=== PATIENT | female | born 1970 | race Caucasian/White ===

== ENCOUNTER → 2017-06-23 | Outpatient (CLI) | payer BC ==
[~2017-06-23] MED LIST: ALB0.5 INH; AUG875 PO; AZIT1PAC21 PO; CEP500 PO; CIPR-368 PO; DOC100 PO; HYD5L PO; HYDEL PO; HYDR473S4 PO; LEV500 PO; LEVO-85 PO; LOR5 PO; METR-1 PO; OND4 PO; ONDA4TAB PO; PAN40 PO; PER PO; PRED20TA6 PO; PRO25 PO; PROM25S PR; SUC1 PO; ZPACK
--- NOTE | 2017-06-23 15:29 | RADIOLOGY IMAGING REPORT ---
FACILITY: [facility] PATIENT NAME: AVTAR MELARA : [id number] MR: [id number] V: [id number] EXAM DATE: [id number] ORDERING PHYSICIAN: VANCE BLACKMON TECHNOLOGIST: Danii Ny PROCEDURE:BILATERAL DIAGNOSTIC DIGITAL MAMMOGRAM WITH CAD ASSISTED INTERPRETATION & 3D TOMOSYNTHESIS COMPARISON:None. INDICATIONS:Small palpable red lump 4 o'clock position of the Right breast. FINDINGS: A small amount of fibroglandular tissue is seen throughout the breasts. There is asymmetric deposition of the fibroglandular tissue which appears denser in the upper outer quadrant of the Left breast. Spot compression view demonstrated this area to be at least partially compressible. There is no demonstration of malignant appearing mass, malignant appearing calcifications or other secondary sign of malignancy in either breast. Today's Right breast Ultrasound demonstrated a small hypoechoic nodule just beneath the skin which may represent a sebaceous cyst or infected skin nodule. Clinical follow-up recommended for patient's palpable findings. DIAGNOSTIC CATEGORY 2--BENIGN FINDING. RECOMMENDATIONS: ROUTINE MAMMOGRAM AND CLINICAL EVALUATION. CLINICAL EVALUATION. IMPRESSION: BIRADS 2: Benign finding Clinical follow-up recommended as described above. Dictated by: Leslie Gonzalez M.D. on 06/23/2017 at 12:17 Transcribed by: RAJESH on 06/23/2017 at 14:01 Approved by: Leslie Gonzalez M.D. on 06/23/2017 at 15:27 [facility]
--- NOTE | 2017-06-23 15:29 | RADIOLOGY IMAGING REPORT ---
FACILITY: [facility] [place] PATIENT NAME: AVTAR MELARA : [id number] MR: [id number] V: [id number] EXAM DATE: ORDERING PHYSICIAN: VANCE BLACKMON TECHNOLOGIST: Ismael Deal PROCEDURE:US RIGHT BREAST COMPARISON:None. INDICATIONS:RIGHT BREAST REDNESS, TENDERNESS AND SMALL LUMP IN THE 4 O'CLOCK POSITION. FINDINGS: In location of the patient's palpable findings there is a small ovoid hypoechoic nodule measuring 8.4 x 4.3 x 7.5mm just beneath the skin. There may be a small tiny tract extending towards the skin surface. This likely represents a small sebaceous cyst or infected skin nodule. Clinical follow-up recommended. DIAGNOSTIC CATEGORY 2--BENIGN FINDING. RECOMMENDATIONS: CLINICAL EVALUATION. IMPRESSION: BIRADS 2: Benign finding Small ovoid hypoechoic nodule just beneath the skin likely represents a small sebaceous cyst or infected skin nodule clinical follow-up recommended. Dictated by: Leslie Gonzalez M.D. on 06/23/2017 at 12:15 Transcribed by: RAJESH on 06/23/2017 at 14:08 Approved by: Leslie Gonzalez M.D. on 06/23/2017 at 15:28 [facility]
== END ==
LOC: US 07:12
PROVIDERS: ATTEND Physician Assistant Medical
DX: Z12.31 Encounter for screening mammogram for malignant neoplasm of breast (principal); N63.14 Unspecified lump in the right breast, lower inner quadrant
CPT/HCPCS: 77062; 77066

== ENCOUNTER → 2017-11-24 | Outpatient (CLI) | payer BC ==
[~2017-11-24] MED LIST changes: +GADOBENATE 529MG/1ML 15ML VIAL IVP ONE
--- NOTE | 2017-11-24 12:47 | RADIOLOGY IMAGING REPORT ---
FACILITY: [facility] [place] PATIENT NAME: Felipa Hunter : 1970 MR: [id number] V: [id number] EXAM DATE: ORDERING PHYSICIAN: ANDREA MARIO TECHNOLOGIST: Location: [facility] [place] Patient: Felipa Hunter : 1970 Visit/Account:[id number] Date of Sevice: 11/24/2017 Exam type: ORBITS FOREIGN BODY 1 VIEW History: Pre-MRI screening Comparison: February 18, 2009. Findings: No radiopaque metallic foreign bodies project over the orbits IMPRESSION: 1. No radiopaque metallic foreign bodies project over the orbits Report Dictated By: Leslie Gonzalez MD at 11/24/2017 12:36 PM Report E-Signed By: Leslie Gonzalez MD at 11/24/2017 12:43 PM WSN:[id number]
--- NOTE | 2017-11-24 14:16 | RADIOLOGY IMAGING REPORT ---
FACILITY: [facility] [place] PATIENT NAME: Felipa Hunter : 1970 MR: [id number] V: [id number] EXAM DATE: ORDERING PHYSICIAN: ANDREA MARIO TECHNOLOGIST: Location: [facility] Patient: Felipa Hunter : 1970 Visit/Account:[id number] Date of Sevice: 11/24/2017 BRAIN W W/O CONTRAST Comparisons: None. Additional pertinent history: Migraine with aura TECHNIQUE: Multiplanar, multisequence brain MRI was performed with and without gadolinium contrast. CONTRAST: 15 ml of MultiHance. FINDINGS: Sagittal midline structures and craniocervical junction: Negative. Midline shift: None. Ventricles: Negative. Brain parenchyma: Diffusion weighted imaging: Negative. Gradient sequence: Negative. T2 weighted FLAIR images: Negative. Extra-axial spaces: Negative. Dural venous sinuses and major arterial flow voids: Negative. Intracranial enhancement: Negative.. Mastoid air cells and paranasal sinuses: Negative. Surrounding soft tissues and orbits: Negative. Impression: Normal brain MRI with and without contrast. Report Dictated By: Justino Cage MD at 11/24/2017 2:03 PM Report E-Signed By: Justino Cage MD at 11/24/2017 2:11 PM WSN:[id number]
== END ==
LOC: MRI 11:05
PROVIDERS: ATTEND Family Medicine
DX: G43.109 Migraine with aura, not intractable, without status migrainosus (principal)
CPT/HCPCS: 70030; 70553; A9577

== ENCOUNTER 2018-06-04 17:05 | Emergency (ER) | payer SELFPAY ==
[~2018-06-04 17:05] MED LIST changes: -GADOBENATE 529MG/1ML 15ML VIAL IVP ONE
--- NOTE | 2018-06-04 17:12 | ER Report ---
History and Physical Time Seen By MD: 17:12 HPI/ROS CHIEF COMPLAINT: Abdominal pain, dysuria HISTORY OF PRESENT ILLNESS: 47-year-old female patient presents to the emergency room with complaint of abdominal pain, dysuria. Patient states pain does radiate around to the back. Patient states this been going on for the past 8 days. She denies having any fevers, chills, nausea, vomiting or diarrhea. Patient states she initially thought she was constipated and took magnesium citrate. I did cause her to vomit. States she's been able to eat and drink since without any difficulties. Patient states that she was sexually active for the first time in a couple of years prior to this starting. She states this was with any partner, she states there was no use of condom. The patient did agree to have chlamydia and gonorrhea testing done. REVIEW OF SYSTEMS: Respiratory: No cough, no dyspnea. Cardiovascular: No chest pain, no palpitations. Gastrointestinal: As noted above Musculoskeletal: As noted above Allergies: Coded Allergies: No Known Drug Allergies (Verified , 02/17/15) Home Meds Active Scripts Phenazopyridine Hcl (PHENAZOPYRIDINE HCL) 100 Mg Tablet, 100 MG PO TID, #15 TAB Prov:ASHLEY GRIFFIN 06/04/18 Sulfamethoxazole/Trimet 800-160 Mg Tab (BACTRIM DS TABLET) 1 Each Tablet, 1 TAB PO Q12H, #14 TAB Prov:ASHLEY GRIFFIN 06/04/18 Reported Medications Pantoprazole Sodium (PANTOPRAZOLE SODIUM) 40 Mg Tablet.dr, 40 MG PO QDAY, TAB.SR 06/04/18 Discontinued Scripts Prednisone (PREDNISONE) 20 Mg Tablet, 40 MG PO QDAY, #20 TAB Prov:DOROTHY OROZCO MD 02/17/15 Levofloxacin 500 Mg Tab (LEVAQUIN 500 MG TAB) 500 Mg Tablet, 500 MG PO DAILY, #7 TAB Prov:DOROTYH OROZCO MD 02/17/15 Past Medical/Surgical History Patient has a past medical history of ulcers, reflux, hiatal hernia, fractured clavicle, substance abuse. Patient has surgical history of hemorrhoidectomy, appendectomy, tubal ligation. Patient has a family medical history of CAD. Reviewed Nurses Notes: Yes Hx Smoking: Yes (1/2 PPD) Smoking Status: Current: Every Day Smoker Hx Substance Use Disorder: Yes Hx Alcohol Use: No Constitutional Vital Sign - Last 24 Hours 06/04/18 06/04/18 06/04/18 06/04/18 17:05 17:12 17:12 17:33 Temp 98.0 Pulse ??? 88 Resp 20 B/P (MAP) 125/84 (98) 125/84 112/72 (85) Pulse Ox 92 O2 Delivery Room Air 06/04/18 06/04/18 06/04/18 06/04/18 17:35 18:00 18:05 18:10 Pulse 83 79 B/P (MAP) 116/78 (91) 114/80 (91) Pulse Ox 89 87 Physical Exam General Appearance: The patient is alert, has no immediate need for airway protection and no current signs of toxicity. Respiratory: Chest is non tender, lungs are clear to auscultation. Cardiac: regular rate and rhythm Gastrointestinal: Abdomen is soft and mildly tender in the left lower quadrant, no masses, bowel sounds normal. Patient had no CVA tenderness. Musculoskeletal: Neck: Neck is supple and non tender. Extremities have full range of motion and are non tender. Skin: No rashes or lesions. DIFFERENTIAL DIAGNOSIS: After history and physical exam differential diagnosis was considered for urinary tract infection, pyelonephritis, constipation. Medical Decision Making Data Points Result Diagram: 06/04/18 1727 06/04/18 1727 Laboratory Hematology Test 06/04/18 17:08 06/04/18 17:27 Urine Color [place]ila Urine Clarity Slightly-cloudy Urine pH 8.0 pH (4.8-9.5) Urine Specific [place] 1.015 Urine Protein 100 mg/dL (NEGATIVE) Urine Glucose (UA) Negative mg/dL (NEGATIVE) Urine Ketones Negative mg/dL (NEGATIVE) Urine Blood Small (NEGATIVE) Urine Nitrite Positive (NEGATIVE) Urine Bilirubin Small (NEGATIVE) Urine Urobilinogen 4.0 mg/dL (0.2-1.9) Urine Leukocyte Esterase Moderate (NEGATIVE) Urine RBC 86 /HPF (0-2/HPF) Urine WBC 296 /HPF (0-5/HPF) Urine WBC Clumps Mod /HPF Urine Squamous Epithelial Cells Many /LPF (</=FEW) Urine Bacteria Negative /HPF (NONE-FEW) Urine Mucus Few /HPF (NONE-FEW) Red Blood Count 5.64 M/uL (4.17-5.56) Mean Corpuscular Volume 87.9 fL (80.0-96.0) Mean Corpuscular Hemoglobin 30.2 pg (26.0-33.0) Mean Corpuscular Hemoglobin Concent 34.4 g/dL (32.0-36.0) Red Cell Distribution Width 13.1 % (11.5-14.5) Mean Platelet Volume 8.4 fL (7.2-11.1) Neutrophils (%) (Auto) 74.5 % (39.4-72.5) Lymphocytes (%) (Auto) 16.4 % (17.6-49.6) Monocytes (%) (Auto) 6.5 % (4.1-12.4) Eosinophils (%) (Auto) 1.6 % (0.4-6.7) Basophils (%) (Auto) 1.0 % (0.3-1.4) Nucleated RBC Relative Count (auto) 0.0 /100WBC Neutrophils # (Auto) 8.6 K/uL (2.0-7.4) Lymphocytes # (Auto) 1.9 K/uL (1.3-3.6) Monocytes # (Auto) 0.8 K/uL (0.3-1.0) Eosinophils # (Auto) 0.2 K/uL (0.0-0.5) Basophils # (Auto) 0.1 K/uL (0.0-0.1) Nucleated RBC Absolute Count (auto) 0.00 K/uL Sodium Level 140 mmol/L (137-145) Potassium Level 3.5 mmol/L (3.5-5.0) Chloride Level 104 mmol/L (98-107) Carbon Dioxide Level 29 mmol/L (22-31) Blood Urea Nitrogen 8 mg/dl (7-18) Creatinine 0.60 mg/dl (0.52-1.04) Glomerular Filtration Rate Calc > 60.0 Random Glucose 88 mg/dl (75-110) Calcium Level 9.0 mg/dl (8.4-10.2) Total Bilirubin 0.7 mg/dl (0.2-1.3) Aspartate Amino Transf (AST/SGOT) 15 U/L (0-35) Alanine Aminotransferase (ALT/SGPT) 19 U/L (0-56) Alkaline Phosphatase 102 U/L (0-126) C-Reactive Protein 2.8 mg/dl (<1.0) Total Protein 6.8 g/dl (6.3-8.2) Albumin 4.0 g/dl (3.5-5.0) Amylase Level 57 U/L (0-110) Lipase 47 U/L (23-300) Human Chorionic Gonadotropin, Qual Negative (NEGATIVE) Chemistry Test 06/04/18 17:08 06/04/18 17:27 Urine Color [place] Urine Clarity Slightly-cloudy Urine pH 8.0 pH (4.8-9.5) Urine Specific [place] 1.015 Urine Protein 100 mg/dL (NEGATIVE) Urine Glucose (UA) Negative mg/dL (NEGATIVE) Urine Ketones Negative mg/dL (NEGATIVE) Urine Blood Small (NEGATIVE) Urine Nitrite Positive (NEGATIVE) Urine Bilirubin Small (NEGATIVE) Urine Urobilinogen 4.0 mg/dL (0.2-1.9) Urine Leukocyte Esterase Moderate (NEGATIVE) Urine RBC 86 /HPF (0-2/HPF) Urine WBC 296 /HPF (0-5/HPF) Urine WBC Clumps Mod /HPF Urine Squamous Epithelial Cells Many /LPF (</=FEW) Urine Bacteria Negative /HPF (NONE-FEW) Urine Mucus Few /HPF (NONE-FEW) White Blood Count 11.5 k/uL (4.5-11.0) Red Blood Count 5.64 M/uL (4.17-5.56) Hemoglobin 17.0 g/dL (12.0-16.0) Hematocrit 49.6 % (34.0-47.0) Mean Corpuscular Volume 87.9 fL (80.0-96.0) Mean Corpuscular Hemoglobin 30.2 pg (26.0-33.0) Mean Corpuscular Hemoglobin Concent 34.4 g/dL (32.0-36.0) Red Cell Distribution Width 13.1 % (11.5-14.5) Platelet Count 248 K/uL (150-450) Mean Platelet Volume 8.4 fL (7.2-11.1) Neutrophils (%) (Auto) 74.5 % (39.4-72.5) Lymphocytes (%) (Auto) 16.4 % (17.6-49.6) Monocytes (%) (Auto) 6.5 % (4.1-12.4) Eosinophils (%) (Auto) 1.6 % (0.4-6.7) Basophils (%) (Auto) 1.0 % (0.3-1.4) Nucleated RBC Relative Count (auto) 0.0 /100WBC Neutrophils # (Auto) 8.6 K/uL (2.0-7.4) Lymphocytes # (Auto) 1.9 K/uL (1.3-3.6) Monocytes # (Auto) 0.8 K/uL (0.3-1.0) Eosinophils # (Auto) 0.2 K/uL (0.0-0.5) Basophils # (Auto) 0.1 K/uL (0.0-0.1) Nucleated RBC Absolute Count (auto) 0.00 K/uL Glomerular Filtration Rate Calc > 60.0 Calcium Level 9.0 mg/dl (8.4-10.2) Total Bilirubin 0.7 mg/dl (0.2-1.3) Aspartate Amino Transf (AST/SGOT) 15 U/L (0-35) Alanine Aminotransferase (ALT/SGPT) 19 U/L (0-56) Alkaline Phosphatase 102 U/L (0-126) C-Reactive Protein 2.8 mg/dl (<1.0) Total Protein 6.8 g/dl (6.3-8.2) Albumin 4.0 g/dl (3.5-5.0) Amylase Level 57 U/L (0-110) Lipase 47 U/L (23-300) Human Chorionic Gonadotropin, Qual Negative (NEGATIVE) Urinalysis Test 06/04/18 17:08 Urine Color [place] Urine Clarity Slightly-cloudy Urine pH 8.0 pH (4.8-9.5) Urine Specific [place] 1.015 Urine Protein 100 mg/dL (NEGATIVE) Urine Glucose (UA) Negative mg/dL (NEGATIVE) Urine Ketones Negative mg/dL (NEGATIVE) Urine Blood Small (NEGATIVE) Urine Nitrite Positive (NEGATIVE) Urine Bilirubin Small (NEGATIVE) Urine Urobilinogen 4.0 mg/dL (0.2-1.9) Urine Leukocyte Esterase Moderate (NEGATIVE) Urine RBC 86 /HPF (0-2/HPF) Urine WBC 296 /HPF (0-5/HPF) Urine WBC Clumps Mod /HPF Urine Squamous Epithelial Cells Many /LPF (</=FEW) Urine Bacteria Negative /HPF (NONE-FEW) Urine Mucus Few /HPF (NONE-FEW) ED Course/Re-evaluation ED Course Patient was admitted to exam room, history and physical were obtained. Differential diagnoses were considered. On examination lungs are clear, heart is regular, abdomen soft nontender. Patient had no CVA tenderness on exam. An IV was started, CBC, CMP, urinalysis, CRP were done. Patient had an elevated white count 11.4, patient had positive leukocyte esterase with 267 white blood cells per high-power field. A urine culture was ordered. Patient will be started on Bactrim. We will change the antibiotics according to the culture. I discussed the findings with the patient who verbalized understanding of plan. I did order a chlamydia and gonorrhea test and will treat according to the results. Decision to Disposition Date: Jun 04, 2018 Decision to Disposition Time: 18:01 Depart Departure Latest Vital Signs Vital Signs Date Time Temp Pulse Resp B/P (MAP) Pulse Ox O2 Delivery O2 Flow Rate FiO2 06/04/18 18:10 114/80 (91) 06/04/18 18:05 79 87 06/04/18 17:12 98.0 20 Room Air Impression: Primary Impression: Urinary tract infection Condition: Improved Disposition: HOME OR SELF-CARE Referrals: VANCE BLACKMON (PCP) New Scripts Phenazopyridine Hcl (PHENAZOPYRIDINE HCL) 100 Mg Tablet 100 MG PO TID, #15 TAB Prov: ASHLEY GRIFFIN 06/04/18 Sulfamethoxazole/Trimet 800-160 Mg Tab (BACTRIM DS TABLET) 1 Each Tablet 1 TAB PO Q12H, #14 TAB Prov: ASHLEY GRIFFIN 06/04/18 Patient Instructions: Urinary Tract Infection in Women (ED) Additional Instructions: Increase fluid intake. Get plenty of rest. Follow up with your primary care provider in the next week. Return to the ER if condition worsens. We are culturing the urine to find the bacteria that is causing this, we will call you if we need to change antibiotics. Make sure that you urinate after intercourse. Problem Qualifiers Primary Impression: Urinary tract infection Urinary tract infection type: acute cystitis Hematuria presence: with hematuria Qualified Codes: N30.01 - Acute cystitis with hematuria ASHLEY GRIFFIN Jun 04, 2018 17:12
[2018-06-04] MEDS ORDERED: NS(*) 0.9% 1000 ML BAG 1,000 ML IV ONE (17:16)
[2018-06-04] MEDS ORDERED: PANT40TA65 PO (17:33)
[2018-06-04 17:37] LABS: PLATELET COUNT, AUTOMATED 248 K/uL (150-450)
[2018-06-04] MEDS ORDERED: SULF-198 PO (18:02)
[2018-06-04] MEDS ORDERED: PHEN100T27 PO (18:05)
[2018-06-04 18:10] VITALS: BP 114/80
== END 2018-06-04 18:22 | disposition home or self-care (01) ==
LOC: ER 18:03
DX: N30.01 Acute cystitis with hematuria (principal)
CPT/HCPCS: 81001; 82150; 83690; 84703; 85025; 86140; 87088; 87491; 87591; 96360; 99283; J7030; 82040; 82247; 82310; 82374; 82435; 82565; 82947; 84075; 84132; 84155; 84295; 84450; 84460; 84520